=== PATIENT | male | born 1950 ===

== ENCOUNTER 2018-07-16 11:34 | Inpatient (IN) ==
[2018-07-16] MEDS ORDERED: DOPamine 800 MG/250 ML PREMIX IV PRN (11:50)
[2018-07-16] MEDS ORDERED: NOREPINEPHRINE 4 MG in SODIUM CHLORIDE 0.9% 246 ML IV PRN (11:50)
[2018-07-16] MEDS ORDERED: SODIUM CHLORIDE 0.9% 1,000 ML IV STA ×2 (11:59→13:10)
[2018-07-16 12:06] LABS: ABG Base Excess -17.8 MMOL/L (-2.5-2.5); ABG HCO3 11.2 MMOL/L (20-26); ABG Oxygen Saturation 93.9 % (95-100); ABG PCO2 43.3 MM HG (35-48); ABG PO2 97.9 MM HG (80-95); ABG TCO2 11.8 MMOL/L (23-27)
[2018-07-16 12:11] LABS: ABG PH 7.062 (7.35-7.45)
[2018-07-16] MEDS ORDERED: SODIUM BICARBONATE 50 MEQ/50 ML VIAL IV STA (12:20)
[2018-07-16] MEDS ORDERED: SODIUM BICARBONATE 50 MEQ/50 ML SYRINGE IV STA (12:21)
[2018-07-16 12:53] LABS: Apearance,Urine CLOUDY (Clear); Bilirubin,Urine Negative (Negative); Blood, Urine Small mg/dL (Negative); Glucose,Urine (UA) 150 mg/dL (Negative); Ketones,Urine Negative (Negative); Nitrite,Urine Negative (Negative); Protein,Urine >=500 MG/DL; Urine Color Yellow (Yellow); Urine Specific Gravity 1.015 (1.001-1.035); Urine Urobilinogen < 2.0 EU/DL (0.2-1.0)
[2018-07-16 12:59] LABS: RBC,Urine 6 /HPF (0-4); Squamous Epithelial Cell,Urine 1+ /HPF (0-10); WBC,Urine 20 /HPF (0-6)
[2018-07-16 13:01] LABS: Renal Epithelial Cells,Urine Few /HPF (<1); Transitional Epi Cells,Urine Few /HPF (<1)
[2018-07-16 13:02] LABS: Albumin 1.7 G/DL (3.4-5.0); Bacteria,Urine 1+ /HPF (Few); Bilirubin,Total 0.4 MG/DL (0.2-1.0); Osmolality,Calculated 353.9 MOS/KG (273-304); Total Protein 5.1 G/DL (6.4-8.3)
[2018-07-16 13:14] LABS: Basophils # 0.1 10*3/uL (0.0-0.2); Basophils % 0.4 % (0.0-0.8); Hematocrit 37.6 VOL% (42.0-52.0); Hemoglobin 10.9 GM/DL (14.0-18.0); Immature Granulocytes % 0.5 %; Immature Granulocytes Absolute 0.08 #; Lymphocytes # 1.7 10*3/uL (1.4-4.0); Lymphocytes % 10.7 % (21.2-54.2); Mean Corpuscular Hemoglobin 31 PG (27-34); Mean Corpuscular Volume 105.3 FL (87-102); Monocytes # 0.6 10*3/uL (0.11-0.8); Monocytes % 3.6 % (1.7-12.7); NRBC # 0.02 10*3/uL; Neutrophils # 13.3 10*3/uL (1.4-7.4); Neutrophils % 84.8 % (38.7-73.9); Platelet Count 323 T/CUMM (130-400); Red Blood Count 3.57 MC/CUMM (3.8-5.5); Red Cell Distribution Width 13.6 % (9.3-17.3); White Blood Count 15.7 T/CUMM (4-12)
[2018-07-16] MEDS ORDERED: SODIUM CHLORIDE 0.9% 2,000 ML IV STA (13:19)
[2018-07-16 13:22] LABS: Anisocytosis 1+; Band Neutrophils 46 % (0-10); Lymphocytes 11 % (20-55); Platelet Estimate Normal; Segmented Neutrophils 41 % (50-85); Total Cells Counted 100
[2018-07-16 13:23] LABS: Poikilocytosis Slight
[2018-07-16 13:45] VITALS: BP 167/68
[2018-07-16] MEDS ORDERED: ONDANSETRON 4 MG/2 ML VIAL IV PRN (14:22)
[2018-07-16] MEDS ORDERED: MORPHINE 4 MG/1 ML VIAL IV PRN ×2 (14:22→15:46)
[2018-07-16] MEDS ORDERED: LEVOFLOXACIN INJ 750 MG in PREMIX 1 EACH IV SCH (14:30)
[2018-07-16] MEDS ORDERED: ENOXAPARIN 30 MG/0.3 ML SYRINGE SUBCUT SCH (14:30)
[2018-07-16] MEDS ORDERED: LORazepam 2 MG/1 ML VIAL IV PRN (14:58)
[2018-07-16] MEDS ORDERED: MEROPENEM 500 MG in SODIUM CHLORIDE 0.9% 100 ML IV SCH (15:00)
[2018-07-16] MEDS ORDERED: SODIUM BICARB INJ 50 MEQ in SODIUM CHLORIDE 0.45% 1,000 ML IV SCH (15:30)
== END 2018-07-16 16:43 | disposition expired | DRG 208 ==
LOC: N.ED 11:34 → N.EDINP 12:15 → N.ICU 13:50
PROVIDERS: ADMIT Internal Medicine; ATTEND Internal Medicine